=== PATIENT | male | born 1990 | race Asian ===

== ENCOUNTER 2023-06-01 23:26 | Emergency (ER) | payer BC ==
[~2023-06-01] VITALS: Ht 172.7 cm; Wt 97.5 kg
[2023-06-01 23:31] VITALS: O2SAT 98
[2023-06-01] MEDS ORDERED: TETANUS/DIPHTHERIA TOX ADULT 0.5 ML SYR IM STA (23:38)
[2023-06-01] MEDS ORDERED: LIDOCAINE HCL 2% LOCAL 20 ML VIAL INJ STA (23:38)
[2023-06-01] MEDS ORDERED: BACITRACIN ZINC 0.9GM TP ONE (23:43)
[2023-06-01] MEDS ORDERED: MUPIROCIN 2% OINT 22 GM TUBE TOP ONE (23:45)
[2023-06-02] MEDS ORDERED: BACITRACIN ZINC 0.9GM TP ONE
== END 2023-06-02 00:27 | disposition home or self-care (01) ==
LOC: FSED 23:39
DX: S61.412A Laceration without foreign body of left hand, initial encounter (principal); W26.8XXA Contact with other sharp object(s), not elsewhere classified, initial encounter; Z23 Encounter for immunization
CPT/HCPCS: 90471; 99283